=== PATIENT | male | born 1985 ===

== ENCOUNTER 2016-10-29 03:33 | Emergency (ER) | payer OTHER ==
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
[2016-10-29] MEDS ORDERED: Diphtheria,Pertussis(Acell),Tetanus Vaccine 0.5 ML Syringe IM ONE (04:12)
[2016-10-29 08:02] VITALS: BP 120/68
== END 2016-10-29 04:32 | disposition home or self-care (01) ==
LOC: VM.ED 03:33
DX: S01.81XA Laceration without foreign body of other part of head, initial encounter (principal); Y04.2XXA Assault by strike against or bumped into by another person, initial encounter; Z23 Encounter for immunization
CPT/HCPCS: 12011; 70486; 90471; 90715; 99282-GF-25; 99284